=== PATIENT | female | born 1965 | race Caucasian/White ===

== ENCOUNTER 2021-12-24 10:15 | Inpatient (IN) | payer BC ==
[2021-12-24 12:11] VITALS: BMI 32.8
[2021-12-24] MEDS ORDERED: Furosemide 40 MG/4 ML VIAL ONE (13:30)
[2021-12-24] MEDS ORDERED: Morphine 4 MG/ML VIAL SLOW IVP SCH (13:45)
[2021-12-24] MEDS: Morphine 4 MG/ML VIAL SLOW IVP PRN ×2 (18:40→22:08)
[2021-12-24] MEDS: Nicotine 14 MG PATCH TD SCH (22:07)
[2021-12-25] MEDS: Morphine 4 MG/ML VIAL SLOW IVP PRN ×6 (01:51→23:57)
[2021-12-25 06:40] LABS: #Basophils 0.1 thou/uL (0.0-0.2); #Eosinphils 0.2 thou/uL (0.0-0.7); #Lymphocytes 3.9 thou/uL (1.20-3.40); #Monocytes 0.4 thou/uL (0.11-0.59); #Neutrophils 5.8 thou/uL (1.40-6.50); %Basophils 0.9 % (0.0-1.0); %Eosinophils 1.6 % (0.0-10.0); %Lymphocytes 37.3 % (21.0-51.0); %Monocytes 3.9 % (0.0-10.0); %Neutrophils 56.2 % (42.0-75.0); Hemoglobin 13.6 g/dL (12.0-16.0); Mean Corpuscular HGB CONC 33.6 g/dL (32.0-36.0); Mean Platelet Volume 8.4 fL (7.4-10.4); Platelet Count 274 thou/uL (130-400); RBC Distribution Width 12.1 % (11.5-14.5); Red Blood Cell (RBC) Count 4.13 mill/uL (4.20-5.40); White Blood Cell (WBC) Count 10.4 thou/uL (4.8-10.8)
[2021-12-25 07:23] LABS: Anion Gap 15 mmol/L (10-20); BUN (Urea Nitrogen) 11 mg/dL (9.8-20.1); Calc. Creatinine Clearance 123 mL/min (70-130); Calcium 8.8 mg/dL (7.8-10.44); Carbon Dioxide 20 mmol/L (22-29); Chloride 107 mmol/L (98-107); Estimated GFR 93; Glucose 84 mg/dL (70-105); Potassium 4.2 mmol/L (3.5-5.1); Sodium 138 mmol/L (136-145)
[2021-12-25 15:52] LABS: Bacteria/HPF None Seen HPF (None Seen); Bilirubin Negative (Negative); Blood, Urine Negative (Negative); Clarity Clear (Clear); Glucose, Urine (Dipstick) Normal (Negative); Ketone, Urine Negative (Negative); Leukocyte Negative Leu/uL (Negative); Nitrite Negative (Negative); Protein, Urine (Dipstick) Negative (Neg-Trace); RBC/HPF 0-3 HPF (0-3); Specific Gravity, Urine 1.008 (1.002-1.036); Squamous Epithelial 0-3 HPF (0-3); Urobilinogen Normal mg/dL (Less than 2); WBC/HPF 0-3 HPF (0-3)
[2021-12-25 15:54] LABS: Urine Culture Reflex No No
[2021-12-25] MEDS ORDERED: Mag-Al 1200 mg/1200 mg/30 ML UDCUP PO PRN (18:48)
[2021-12-25] MEDS: traMADol HCl 50 MG TAB PO PRN (19:38)
[2021-12-25] MEDS: Famotidine 20 MG TAB PO SCH (19:39)
[2021-12-25] MEDS: Citalopram 20 MG TAB PO SCH (21:40)
[2021-12-25] MEDS: Zolpidem Tartrate 5 MG TAB PO SCH (21:40)
[2021-12-25] MEDS: Cyclobenzaprine 10 MG TAB PO SCH (21:40)
[2021-12-25] MEDS: Nicotine 14 MG PATCH TD SCH (21:40)
[2021-12-26] MEDS: Morphine 4 MG/ML VIAL SLOW IVP PRN ×4 (04:29→18:43)
[2021-12-26] MEDS: traMADol HCl 50 MG TAB PO PRN (04:31)
[2021-12-26] MEDS: Levothyroxine Sodium 100 MCG TAB PO SCH (05:39)
[2021-12-26] MEDS: Levothyroxine Sodium 25 MCG TAB PO SCH (05:39)
[2021-12-26 06:55] LABS: #Eosinphils 0.2 thou/uL (0.0-0.7); #Lymphocytes 3.5 thou/uL (1.20-3.40); #Monocytes 0.5 thou/uL (0.11-0.59); %Basophils 0.5 % (0.0-1.0); %Eosinophils 1.9 % (0.0-10.0); %Monocytes 4.9 % (0.0-10.0); %Neutrophils 58.8 % (42.0-75.0); Hemoglobin 13.6 g/dL (12.0-16.0); Mean Corpuscular HGB CONC 32.6 g/dL (32.0-36.0); Mean Corpuscular Volume 98.3 fL (78.0-98.0); Mean Platelet Volume 8.6 fL (7.4-10.4); Platelet Count 236 thou/uL (130-400); Red Blood Cell (RBC) Count 4.26 mill/uL (4.20-5.40); White Blood Cell (WBC) Count 10.2 thou/uL (4.8-10.8)
[2021-12-26 07:16] LABS: Anion Gap 15 mmol/L (10-20); BUN (Urea Nitrogen) 9 mg/dL (9.8-20.1); Calc. Creatinine Clearance 140 mL/min (70-130); Carbon Dioxide 22 mmol/L (22-29); Chloride 107 mmol/L (98-107); Estimated GFR 104; Glucose 88 mg/dL (70-105); Potassium 3.8 mmol/L (3.5-5.1); Sodium 140 mmol/L (136-145)
[2021-12-26] MEDS: Famotidine 20 MG TAB PO SCH ×2 (08:42→20:24)
[2021-12-26] MEDS: Spironolactone 100 MG TAB PO SCH (08:44)
[2021-12-26] MEDS: HYDROcodone/Acetaminophen 10/325 mg Tablet PO PRN ×2 (12:49→18:43)
[2021-12-26] MEDS ORDERED: Iopamidol 370 76% 100 ML VIAL ONE (15:53)
[2021-12-26] MEDS ORDERED: Fleet Enema 133 ML BOT PR SCH (19:15)
[2021-12-26] MEDS: Cyclobenzaprine 10 MG TAB PO SCH (20:24)
[2021-12-26] MEDS: Citalopram 20 MG TAB PO SCH (20:24)
[2021-12-26] MEDS: Senokot 8.6 MG TAB PO SCH (20:25)
[2021-12-26] MEDS: Zolpidem Tartrate 5 MG TAB PO SCH (20:25)
[2021-12-26] MEDS: Nicotine 14 MG PATCH TD SCH (23:35)
[2021-12-27] MEDS: HYDROcodone/Acetaminophen 10/325 mg Tablet PO PRN ×4 (00:21→22:12)
[2021-12-27] MEDS: Morphine 4 MG/ML VIAL SLOW IVP PRN ×6 (00:25→23:31)
[2021-12-27] MEDS: Levothyroxine Sodium 100 MCG TAB PO SCH (05:13)
[2021-12-27] MEDS: Levothyroxine Sodium 25 MCG TAB PO SCH (05:14)
[2021-12-27 06:17] LABS: #Basophils 0.1 thou/uL (0.0-0.2); #Eosinphils 0.2 thou/uL (0.0-0.7); #Lymphocytes 4.3 thou/uL (1.20-3.40); #Monocytes 0.7 thou/uL (0.11-0.59); %Basophils 0.5 % (0.0-1.0); %Eosinophils 1.6 % (0.0-10.0); %Lymphocytes 32.5 % (21.0-51.0); %Monocytes 5.1 % (0.0-10.0); %Neutrophils 60.3 % (42.0-75.0); Hemoglobin 14.9 g/dL (12.0-16.0); Mean Corpuscular HGB CONC 33.1 g/dL (32.0-36.0); Mean Corpuscular Hemoglobin 32.2 pg (27.0-31.0); Mean Corpuscular Volume 97.3 fL (78.0-98.0); Mean Platelet Volume 8.2 fL (7.4-10.4); Platelet Count 280 thou/uL (130-400); RBC Distribution Width 12.2 % (11.5-14.5); Red Blood Cell (RBC) Count 4.64 mill/uL (4.20-5.40); White Blood Cell (WBC) Count 13.3 thou/uL (4.8-10.8)
[2021-12-27 06:34] LABS: Anion Gap 17 mmol/L (10-20); BUN (Urea Nitrogen) 12 mg/dL (9.8-20.1); Calc. Creatinine Clearance 120 mL/min (70-130); Calcium 9.2 mg/dL (7.8-10.44); Carbon Dioxide 23 mmol/L (22-29); Chloride 102 mmol/L (98-107); Estimated GFR 90; Glucose 95 mg/dL (70-105); Potassium 4.5 mmol/L (3.5-5.1); Sodium 137 mmol/L (136-145)
[2021-12-27] MEDS: Polyethylene Glycol 3350 17 GM Packet PO SCH (08:13)
[2021-12-27] MEDS: Famotidine 20 MG TAB PO SCH ×2 (08:14→19:54)
[2021-12-27] MEDS: Spironolactone 100 MG TAB PO SCH (08:14)
[2021-12-27] MEDS: Senokot 8.6 MG TAB PO SCH ×2 (08:14→19:54)
[2021-12-27] MEDS: Citalopram 20 MG TAB PO SCH (19:54)
[2021-12-27] MEDS: Zolpidem Tartrate 5 MG TAB PO SCH (19:54)
[2021-12-27] MEDS: Cyclobenzaprine 10 MG TAB PO SCH (19:54)
[2021-12-27] MEDS: Nicotine 14 MG PATCH TD SCH (23:30)
[2021-12-28] MEDS: Morphine 4 MG/ML VIAL SLOW IVP PRN ×4 (04:17→17:36)
[2021-12-28] MEDS: HYDROcodone/Acetaminophen 10/325 mg Tablet PO PRN ×3 (05:30→21:29)
[2021-12-28] MEDS: Levothyroxine Sodium 100 MCG TAB PO SCH (05:31)
[2021-12-28] MEDS: Levothyroxine Sodium 25 MCG TAB PO SCH (05:31)
[2021-12-28 06:39] LABS: #Basophils 0.1 thou/uL (0.0-0.2); #Eosinphils 0.3 thou/uL (0.0-0.7); #Lymphocytes 4.4 thou/uL (1.20-3.40); #Monocytes 0.7 thou/uL (0.11-0.59); #Neutrophils 7.7 thou/uL (1.40-6.50); %Basophils 0.8 % (0.0-1.0); %Eosinophils 2.1 % (0.0-10.0); %Lymphocytes 33.3 % (21.0-51.0); %Monocytes 5.1 % (0.0-10.0); %Neutrophils 58.7 % (42.0-75.0); Hemoglobin 13.8 g/dL (12.0-16.0); Mean Corpuscular HGB CONC 32.8 g/dL (32.0-36.0); Mean Corpuscular Hemoglobin 32.2 pg (27.0-31.0); Mean Corpuscular Volume 98.1 fL (78.0-98.0); Mean Platelet Volume 8.3 fL (7.4-10.4); Platelet Count 261 thou/uL (130-400); Red Blood Cell (RBC) Count 4.29 mill/uL (4.20-5.40); White Blood Cell (WBC) Count 13.2 thou/uL (4.8-10.8)
[2021-12-28 07:08] LABS: Anion Gap 16 mmol/L (10-20); BUN (Urea Nitrogen) 14 mg/dL (9.8-20.1); Calc. Creatinine Clearance 115 mL/min (70-130); Calcium 9.1 mg/dL (7.8-10.44); Carbon Dioxide 21 mmol/L (22-29); Chloride 103 mmol/L (98-107); Estimated GFR 86; Glucose 120 mg/dL (70-105); Potassium 3.9 mmol/L (3.5-5.1); Sodium 136 mmol/L (136-145)
[2021-12-28] MEDS: Polyethylene Glycol 3350 17 GM Packet PO SCH (08:35)
[2021-12-28] MEDS: Senokot 8.6 MG TAB PO SCH ×2 (08:36→20:12)
[2021-12-28] MEDS: Spironolactone 100 MG TAB PO SCH (08:36)
[2021-12-28] MEDS: Famotidine 20 MG TAB PO SCH (08:36)
[2021-12-28] MEDS: Sodium Chloride 0.9% 1,000 ML IV SCH (17:36)
[2021-12-28] MEDS ORDERED: Piperacillin/Tazobactam 3.375 GM in Sodium Chloride 0.9% 100 ML IVPB SCH ×2 (17:45→18:00)
[2021-12-28] MEDS: Cyclobenzaprine 10 MG TAB PO SCH (20:09)
[2021-12-28] MEDS: Zolpidem Tartrate 5 MG TAB PO SCH (20:10)
[2021-12-28] MEDS: Gabapentin 300 MG CAP PO SCH (20:10)
[2021-12-28] MEDS: Citalopram 20 MG TAB PO SCH (20:10)
[2021-12-28] MEDS: Nicotine 14 MG PATCH TD SCH (23:03)
[2021-12-28] MEDS: Piperacillin/Tazobactam 3.375 GM in Sodium Chloride 0.9% 100 ML IVPB SCH (23:04)
[2021-12-29] MEDS: Morphine 4 MG/ML VIAL SLOW IVP PRN ×5 (00:56→21:01)
[2021-12-29] MEDS: Sodium Chloride 0.9% 1,000 ML IV SCH ×4 (02:30→23:46)
[2021-12-29] MEDS: HYDROcodone/Acetaminophen 10/325 mg Tablet PO PRN ×4 (04:26→23:47)
[2021-12-29] MEDS: Piperacillin/Tazobactam 3.375 GM in Sodium Chloride 0.9% 100 ML IVPB SCH ×2 (05:43→12:41)
[2021-12-29] MEDS: Levothyroxine Sodium 25 MCG TAB PO SCH (05:44)
[2021-12-29] MEDS: Levothyroxine Sodium 100 MCG TAB PO SCH (05:44)
[2021-12-29 08:21] LABS: #Eosinphils 0.2 thou/uL (0.0-0.7); #Lymphocytes 2.7 thou/uL (1.20-3.40); #Monocytes 0.7 thou/uL (0.11-0.59); #Neutrophils 7.6 thou/uL (1.40-6.50); %Basophils 0.3 % (0.0-1.0); %Eosinophils 2.2 % (0.0-10.0); %Lymphocytes 24.1 % (21.0-51.0); %Monocytes 6.1 % (0.0-10.0); %Neutrophils 67.3 % (42.0-75.0); Mean Corpuscular HGB CONC 32.5 g/dL (32.0-36.0); Mean Corpuscular Hemoglobin 31.9 pg (27.0-31.0); Mean Corpuscular Volume 98.2 fL (78.0-98.0); Mean Platelet Volume 8.4 fL (7.4-10.4); Platelet Count 247 thou/uL (130-400); RBC Distribution Width 11.9 % (11.5-14.5); Red Blood Cell (RBC) Count 4.08 mill/uL (4.20-5.40); White Blood Cell (WBC) Count 11.3 thou/uL (4.8-10.8)
[2021-12-29 08:33] LABS: ALT (SGPT) 64 U/L (8-55); AST (SGOT) 41 U/L (5-34); Albumin 3.9 g/dL (3.5-5.0); Alkaline Phosphatase 135 U/L (40-110); Anion Gap 13 mmol/L (10-20); BUN (Urea Nitrogen) 9 mg/dL (9.8-20.1); Bilirubin, Direct 0.2 mg/dL (0.1-0.3); Bilirubin, Total 0.3 mg/dL (0.2-1.2); Calc. Creatinine Clearance 121 mL/min (70-130); Carbon Dioxide 25 mmol/L (22-29); Chloride 104 mmol/L (98-107); Estimated GFR 92; Glucose 113 mg/dL (70-105); Lipase 5 U/L (8-78); Magnesium 1.9 mg/dL (1.6-2.6); Potassium 4.3 mmol/L (3.5-5.1); Protein, Total 6.8 g/dL (6.0-8.3); Sodium 138 mmol/L (136-145)
[2021-12-29 08:34] LABS: Lactic Acid 1.3 mmol/L (0.5-2.2)
[2021-12-29] MEDS: Gabapentin 300 MG CAP PO SCH ×3 (10:47→21:08)
[2021-12-29] MEDS: Senokot 8.6 MG TAB PO SCH ×2 (10:47→21:09)
[2021-12-29] MEDS: Spironolactone 100 MG TAB PO SCH (10:48)
[2021-12-29] MEDS: Cyclobenzaprine 10 MG TAB PO SCH (21:08)
[2021-12-29] MEDS: Citalopram 20 MG TAB PO SCH (21:09)
[2021-12-29] MEDS: Zolpidem Tartrate 5 MG TAB PO SCH (21:09)
[2021-12-29] MEDS: Nicotine 14 MG PATCH TD SCH (23:47)
[2021-12-30] MEDS: Morphine 4 MG/ML VIAL SLOW IVP PRN ×4 (04:19→22:22)
[2021-12-30] MEDS: Levothyroxine Sodium 100 MCG TAB PO SCH (05:45)
[2021-12-30] MEDS: HYDROcodone/Acetaminophen 10/325 mg Tablet PO PRN ×3 (05:45→19:32)
[2021-12-30] MEDS: Levothyroxine Sodium 25 MCG TAB PO SCH (05:45)
[2021-12-30 07:41] LABS: Anion Gap 18 mmol/L (10-20); BUN (Urea Nitrogen) 9 mg/dL (9.8-20.1); Calc. Creatinine Clearance 126 mL/min (70-130); Calcium 8.7 mg/dL (7.8-10.44); Carbon Dioxide 14 mmol/L (22-29); Chloride 110 mmol/L (98-107); Estimated GFR 96; Glucose 95 mg/dL (70-105); Magnesium 1.9 mg/dL (1.6-2.6); Potassium 4.6 mmol/L (3.5-5.1); Sodium 137 mmol/L (136-145)
[2021-12-30 08:02] LABS: #Basophils 0.1 thou/uL (0.0-0.2); #Eosinphils 0.2 thou/uL (0.0-0.7); #Lymphocytes 3.3 thou/uL (1.20-3.40); #Monocytes 0.6 thou/uL (0.11-0.59); #Neutrophils 6.3 thou/uL (1.40-6.50); %Basophils 0.5 % (0.0-1.0); %Eosinophils 1.9 % (0.0-10.0); %Lymphocytes 31.4 % (21.0-51.0); %Monocytes 5.8 % (0.0-10.0); %Neutrophils 60.3 % (42.0-75.0); Hemoglobin 12.8 g/dL (12.0-16.0); Mean Corpuscular HGB CONC 31.4 g/dL (32.0-36.0); Mean Corpuscular Hemoglobin 30.8 pg (27.0-31.0); Mean Corpuscular Volume 98.3 fL (78.0-98.0); Mean Platelet Volume 8.3 fL (7.4-10.4); Platelet Count 284 thou/uL (130-400); RBC Distribution Width 12.2 % (11.5-14.5); Red Blood Cell (RBC) Count 4.15 mill/uL (4.20-5.40); White Blood Cell (WBC) Count 10.5 thou/uL (4.8-10.8)
[2021-12-30] MEDS ORDERED: Iopamidol-370 76% 500 ML 1 ML ONE (09:26)
[2021-12-30] MEDS: Spironolactone 100 MG TAB PO SCH (09:36)
[2021-12-30] MEDS: Gabapentin 300 MG CAP PO SCH ×3 (09:36→22:27)
[2021-12-30] MEDS: Senokot 8.6 MG TAB PO SCH ×2 (09:36→22:29)
[2021-12-30] MEDS: Sodium Chloride 0.9% 1,000 ML IV SCH (10:24)
[2021-12-30] MEDS ORDERED: Piperacillin/Tazobactam 3.375 GM in Sodium Chloride 0.9% 100 ML IVPB SCH ×2 (14:57→17:00)
[2021-12-30] MEDS: Piperacillin/Tazobactam 3.375 GM in Sodium Chloride 0.9% 100 ML IVPB SCH (22:27)
[2021-12-30] MEDS: Citalopram 20 MG TAB PO SCH (22:28)
[2021-12-30] MEDS: Zolpidem Tartrate 5 MG TAB PO SCH (22:28)
[2021-12-30] MEDS: Cyclobenzaprine 10 MG TAB PO SCH (22:28)
[2021-12-30] MEDS: Nicotine 14 MG PATCH TD SCH (22:29)
[2021-12-31] MEDS: HYDROcodone/Acetaminophen 10/325 mg Tablet PO PRN ×4 (01:35→21:31)
[2021-12-31] MEDS: Zolpidem Tartrate 5 MG TAB PO SCH ×2 (01:36→21:32)
[2021-12-31] MEDS: Piperacillin/Tazobactam 3.375 GM in Sodium Chloride 0.9% 100 ML IVPB SCH ×2 (05:41→14:48)
[2021-12-31] MEDS: Levothyroxine Sodium 100 MCG TAB PO SCH (05:43)
[2021-12-31] MEDS: Levothyroxine Sodium 25 MCG TAB PO SCH (05:44)
[2021-12-31] MEDS: Morphine 4 MG/ML VIAL SLOW IVP PRN (05:46)
[2021-12-31 06:28] LABS: #Basophils 0.1 thou/uL (0.0-0.2); #Eosinphils 0.2 thou/uL (0.0-0.7); #Monocytes 0.4 thou/uL (0.11-0.59); #Neutrophils 5.3 thou/uL (1.40-6.50); %Basophils 0.9 % (0.0-1.0); %Eosinophils 2.5 % (0.0-10.0); %Lymphocytes 33.2 % (21.0-51.0); %Monocytes 4.5 % (0.0-10.0); %Neutrophils 58.9 % (42.0-75.0); Hemoglobin 13.6 g/dL (12.0-16.0); Mean Corpuscular HGB CONC 32.5 g/dL (32.0-36.0); Mean Corpuscular Hemoglobin 32.3 pg (27.0-31.0); Mean Corpuscular Volume 99.3 fL (78.0-98.0); Mean Platelet Volume 8.6 fL (7.4-10.4); Platelet Count 244 thou/uL (130-400); RBC Distribution Width 12.1 % (11.5-14.5); White Blood Cell (WBC) Count 9.1 thou/uL (4.8-10.8)
[2021-12-31 06:44] LABS: Lactic Acid 1.3 mmol/L (0.5-2.2)
[2021-12-31 06:49] LABS: Anion Gap 15 mmol/L (10-20); BUN (Urea Nitrogen) 8 mg/dL (9.8-20.1); Calc. Creatinine Clearance 120 mL/min (70-130); Calcium 8.9 mg/dL (7.8-10.44); Carbon Dioxide 20 mmol/L (22-29); Chloride 109 mmol/L (98-107); Estimated GFR 90; Glucose 101 mg/dL (70-105); Sodium 140 mmol/L (136-145)
[2021-12-31] MEDS: Gabapentin 300 MG CAP PO SCH ×3 (09:02→21:33)
[2021-12-31] MEDS: Senokot 8.6 MG TAB PO SCH ×2 (09:02→21:34)
[2021-12-31] MEDS: Spironolactone 100 MG TAB PO SCH (09:03)
[2021-12-31] MEDS ORDERED: Acetaminophen 325 MG TAB PO PRN (14:29)
[2021-12-31] MEDS: Ibuprofen 200 MG TAB PO PRN ×2 (14:52→21:29)
[2021-12-31] MEDS: Lidocaine 5% Patch TD SCH (14:53)
[2021-12-31] MEDS ORDERED: Lidocaine 5% Patch TD SCH (15:00)
[2021-12-31] MEDS ORDERED: Azithromycin 250 MG TAB PO SCH (15:00)
[2021-12-31] MEDS: Albuterol Sulfate 2.5 mg/3 ml Neb NEB SCH ×2 (18:47→18:49)
[2021-12-31] MEDS: Amoxicillin/Potassium Clav 875 MG TAB PO SCH (21:29)
[2021-12-31] MEDS: Cyclobenzaprine 10 MG TAB PO SCH (21:29)
[2021-12-31] MEDS: Citalopram 20 MG TAB PO SCH (21:32)
[2021-12-31] MEDS: Nicotine 14 MG PATCH TD SCH (21:41)
[2021-12-31 23:12] LABS: Legionella Urinary Ag Negative (Negative); Strep pneumo Urine Ag NEGATIVE (NEGATIVE)
[2022-01-01] MEDS: Albuterol Sulfate 2.5 mg/3 ml Neb NEB SCH ×5 (01:53→14:13)
[2022-01-01] MEDS: Ibuprofen 200 MG TAB PO PRN ×2 (02:30→08:36)
[2022-01-01] MEDS: HYDROcodone/Acetaminophen 10/325 mg Tablet PO PRN ×2 (02:31→08:36)
[2022-01-01] MEDS ORDERED: Transdermal Patch Removal TOP SCH (03:00)
[2022-01-01] MEDS: Levothyroxine Sodium 25 MCG TAB PO SCH (06:27)
[2022-01-01] MEDS: Levothyroxine Sodium 100 MCG TAB PO SCH (06:27)
[2022-01-01 06:39] LABS: #Basophils 0.1 thou/uL (0.0-0.2); #Eosinphils 0.2 thou/uL (0.0-0.7); #Lymphocytes 2.8 thou/uL (1.20-3.40); #Monocytes 0.6 thou/uL (0.11-0.59); #Neutrophils 4.4 thou/uL (1.40-6.50); %Basophils 0.6 % (0.0-1.0); %Eosinophils 2.6 % (0.0-10.0); %Lymphocytes 35.5 % (21.0-51.0); %Monocytes 6.9 % (0.0-10.0); %Neutrophils 54.4 % (42.0-75.0); Hemoglobin 12.4 g/dL (12.0-16.0); Mean Corpuscular HGB CONC 33.5 g/dL (32.0-36.0); Mean Corpuscular Volume 98.5 fL (78.0-98.0); Mean Platelet Volume 8.7 fL (7.4-10.4); Platelet Count 230 thou/uL (130-400); RBC Distribution Width 12.2 % (11.5-14.5); Red Blood Cell (RBC) Count 3.76 mill/uL (4.20-5.40)
[2022-01-01 07:05] LABS: ALT (SGPT) 114 U/L (8-55); AST (SGOT) 59 U/L (5-34); Albumin 3.5 g/dL (3.5-5.0); Alkaline Phosphatase 136 U/L (40-110); Anion Gap 13 mmol/L (10-20); BUN (Urea Nitrogen) 10 mg/dL (9.8-20.1); Bilirubin, Direct 0.2 mg/dL (0.1-0.3); Bilirubin, Total 0.4 mg/dL (0.2-1.2); Calc. Creatinine Clearance 123 mL/min (70-130); Calcium 8.8 mg/dL (7.8-10.44); Carbon Dioxide 24 mmol/L (22-29); Chloride 109 mmol/L (98-107); Estimated GFR 93; Glucose 100 mg/dL (70-105); Potassium 4.3 mmol/L (3.5-5.1); Sodium 142 mmol/L (136-145)
[2022-01-01 08:18] VITALS: TEMP 97.6
[2022-01-01] MEDS: Gabapentin 300 MG CAP PO SCH ×2 (08:36→14:18)
[2022-01-01] MEDS: Senokot 8.6 MG TAB PO SCH (08:36)
[2022-01-01] MEDS: Amoxicillin/Potassium Clav 875 MG TAB PO SCH (08:36)
[2022-01-01] MEDS: Spironolactone 100 MG TAB PO SCH (08:37)
[2022-01-01] MEDS ORDERED: Azithromycin 250 MG TAB PO SCH (09:00)
[2022-01-01] MEDS ORDERED: Albuterol 200 PUFF (6.7GM INHALER) INH SCH (09:36)
[2022-01-01 12:56] VITALS: BP 101/66
[2022-01-01] MEDS: Lidocaine 5% Patch TD SCH (14:18)
== END 2022-01-01 14:33 | disposition home or self-care (01) | DRG 194 ==
LOC: T4-B 11:42 → OBSVTOIN 12-26 12:35
PROVIDERS: ADMIT Family Medicine; ATTEND Family Medicine
PROC: BT1F1ZZ Fluoroscopy of Left Kidney, Ureter and Bladder using Low Osmolar Contrast (ICD-10-PCS; principal; 2021-12-26)
DX: J15.9 Unspecified bacterial pneumonia (principal); N13.30 Unspecified hydronephrosis; E88.01 Alpha-1-antitrypsin deficiency; Z20.822 Contact with and (suspected) exposure to COVID-19; F32.A Depression, unspecified; I10 Essential (primary) hypertension; R74.01 Elevation of levels of liver transaminase levels; N30.30 Trigonitis without hematuria; F17.210 Nicotine dependence, cigarettes, uncomplicated; E89.0 Postprocedural hypothyroidism; F17.290 Nicotine dependence, other tobacco product, uncomplicated; K21.9 Gastro-esophageal reflux disease without esophagitis; K59.00 Constipation, unspecified; Z79.899 Other long term (current) drug therapy; Z79.890 Hormone replacement therapy; Z90.710 Acquired absence of both cervix and uterus; Z98.890 Other specified postprocedural states; Z90.49 Acquired absence of other specified parts of digestive tract
CPT/HCPCS: 36415; 71275; 74176; 74178; 74410; 76770; 78708; 80048; 80076; 81001; 83605; 83690; 83735; 84145; 85025; 85652; 86140; 87449; 87899; 94640; 96374; 96376; A4641; A9562; G0378; J1940; J2270; J2543; J3490; J7050; J7611; J7620; Q9967; U0003; U0005